=== PATIENT | male | born 1945 | race Caucasian/White ===

== ENCOUNTER 2018-09-13 14:30 | Outpatient (RCR) | payer OTHER ==
[~2018-09-13 14:30] MED LIST: AGGRENOX ER 251 CER PO; ASPIRIN 32325 MG/TAB PO; DESYREL 100MG100 MG PO; DIABETA 5MG5 MG/TAB PO; FLAGYL500 MG PO; FOLIC ACID 11 MG/TA1 PO; GLUCOPHAGE1000 MG PO; IBU-6600 MG PO; LEVAQUIN 750MG750 M1 PO; NITROQUICK0.4 MG SL; REFRESH 1 ML1 ML OP; SEROQUEL50 MG PO; TOPROL XL 50MG50 MG PO; TYLENOL EXTRA500 M1 PO; VITAMIN D31000 IU PO; VITAMIN D3400 IU PO; WELLBUTRIN 75MG75 MG PO; ZANTAC 150MG T150 MG PO; ZESTRIL 10MG10 MG PO; ZOCOR 40MG40 MG PO
== END 2018-11-21 | disposition home or self-care (01) ==
LOC: MKS.ESL.PT
DX: R53.1 Weakness (principal); R29.898 Other symptoms and signs involving the musculoskeletal system; M54.9 Dorsalgia, unspecified; Z79.01 Long term (current) use of anticoagulants; Z79.82 Long term (current) use of aspirin; Z79.899 Other long term (current) drug therapy